=== PATIENT | female | born 1940 | race Caucasian/White ===

== ENCOUNTER 2018-01-13 09:04 | Day surgery (SDC) | payer OTHER ==
[2018-01-13 10:07] VITALS: TEMP 97.4
[2018-01-13] MEDS ORDERED: SUBLIMAZE ONE (11:54)
[2018-01-13] MEDS ORDERED: DIPRIVAN 20 ML VIAL IVP ONE (11:54)
[2018-01-13] MEDS ORDERED: VERSED ONE (11:54)
[2018-01-13 12:20] VITALS: BP 116/76
--- NOTE | 2018-01-14 10:36 | OP ---
INDICATIONS FOR PROCEDURE: 77-year-old female presents complaining of excessive belching. This is a chronic issue. She is scheduled for endoscopy investigation. MEDICATIONS: SEE ANESTHESIA NOTES. PROCEDURE: ENDOSCOPY, GASTRIC BIOPSY. REPORT: The risks, benefits, alternatives and limitations were discussed in detail with the patient. Informed consent was obtained. After adequate sedation was achieved, the video endoscope was introduced in the posterior pharynx and esophagus under direct vision and easily advanced down to the second portion of the duodenum. I then slowly withdrew. The duodenal mucosa appeared unremarkable as did the duodenal bulb. The antrum and body were relatively unremarkable. In the proximal body and fundus there were several hyperplastic appearing fundic type polyps. Biopsied this for histologic review. No other abnormalities were noted. The scope was anteflexed and withdrawn back into the esophagus. The GE junction was located at the top of the gastric folds at the diaphragmatic hiatus. The esophagus was unremarkable. The patient tolerated the procedure well with stable vital signs and pulse oximetry throughout. IMPRESSION: 1. BENIGN APPEARING FUNDIC TYPE GASTRIC POLYPS. 2. OTHERWISE UNREMARKABLE EXAM. RECOMMENDATIONS: 1. I have talked to her about dietary habits that she can try to help decrease belching. 2. Reflux precautions. 3. Await biopsy results to confirm benign nature of the fundic type polyps. 4. Will see her back in the office as needed. CC: DR. STANISLAV PATEL
== END 2018-01-13 13:00 | disposition home health service (06) ==
LOC: SURG 09:04
PROVIDERS: ATTEND Internal Medicine Gastroenterology
DX: R14.2 Eructation (principal); K31.7 Polyp of stomach and duodenum